=== PATIENT | male | born 1970 | race African-American/Black ===

== ENCOUNTER 2018-01-05 17:47 | Emergency (ER) | payer SELFPAY ==
[~2018-01-05] VITALS: Ht 185.4 cm; Wt 142.0 kg
[2018-01-05 18:05] VITALS: BP 115/71
== END 2018-01-05 22:45 | disposition left against medical advice (07) ==
LOC: ER 17:47
DX: L08.9 Local infection of the skin and subcutaneous tissue, unspecified (principal)
CPT/HCPCS: 99281; Z7610